=== PATIENT | female | born 1995 | race American Indian/Alaskan Native ===

== ENCOUNTER 2017-06-29 12:31 | Emergency (ER) | payer OTHER ==
[2017-06-29 12:49] VITALS: BP 114/63
== END 2017-06-29 13:45 | disposition left against medical advice (07) ==
LOC: ED 12:31
DX: T19.2XXA Foreign body in vulva and vagina, initial encounter (principal); Z53.21 Procedure and treatment not carried out due to patient leaving prior to being seen by health care provider; X58.XXXA Exposure to other specified factors, initial encounter; Y93.89 Activity, other specified; Y99.8 Other external cause status; Y92.89 Other specified places as the place of occurrence of the external cause

== ENCOUNTER 2017-07-03 08:11 | Emergency (ER) | payer OTHER ==
[2017-07-03 08:29] VITALS: BP 101/77
--- NOTE | 2017-07-03 09:56 | Emergency Department Report ---
ED Female HPI - General Chief complaint: Urogenital-Female Stated complaint: FOREIGN BODY VAGINAL AREA Time Seen by Provider: 07/03/17 09:38 Source: patient Mode of arrival: Ambulatory Limitations: No Limitations - History of Present Illness Initial comments: Patient is a 22-year-old female who presents to ED stating that she is unable to get the tampon out of her. Patient states she put a tampon in 4 days ago and has been unable to get it out. Patient states she does notice herself order when she urinates otherwise no other symptoms. - Related Data Previous Rx's Medication Instructions Recorded Last Taken Type metroNIDAZOLE [Flagyl TAB] 500 mg PO Q12HR #14 tab 07/03/17 Unknown Rx Allergies Allergy/AdvReac Type Severity Reaction Status Date / Time No Known Allergies Allergy Unverified 06/29/17 12:49 ED Review of Systems ROS: Stated complaint: FOREIGN BODY VAGINAL AREA Other details as noted in HPI Constitutional: denies: chills, fever Eyes: denies: eye pain, eye discharge, vision change ENT: denies: ear pain, throat pain Respiratory: denies: cough, shortness of breath, wheezing Cardiovascular: denies: chest pain, palpitations Endocrine: no symptoms reported Gastrointestinal: denies: abdominal pain, nausea, diarrhea Genitourinary: denies: urgency, dysuria, discharge Musculoskeletal: denies: back pain, joint swelling, arthralgia Skin: denies: rash, lesions Neurological: denies: headache, weakness, paresthesias Psychiatric: denies: anxiety, depression Hematological/Lymphatic: denies: easy bleeding, easy bruising ED Past Medical Hx - Past Medical History Previous Medical History?: No - Surgical History Past Surgical History?: No - Social History Smoking Status: Current Every Day Smoker Substance Use Type: Alcohol - Medications Home Medications: Home Medications Medication Instructions Recorded Confirmed Last Taken Type metroNIDAZOLE [Flagyl TAB] 500 mg PO Q12HR #14 tab 07/03/17 Unknown Rx ED Physical Exam - General Limitations: No Limitations General appearance: alert, in no apparent distress - Head Head exam: Present: atraumatic, normocephalic - Eye Eye exam: Present: normal appearance - ENT ENT exam: Present: mucous membranes moist - Neck Neck exam: Present: normal inspection - Respiratory Respiratory exam: Present: normal lung sounds bilaterally. Absent: respiratory distress - Cardiovascular Cardiovascular Exam: Present: regular rate, normal rhythm. Absent: systolic murmur, diastolic murmur, rubs, gallop - GI/Abdominal GI/Abdominal exam: Present: soft, normal bowel sounds - External exam: Present: normal external exam. Absent: erythema, swelling, lesions Speculum exam: Present: foreign body (Tampon), other - Extremities Exam Extremities exam: Present: normal inspection - Back Exam Back exam: Present: normal inspection - Neurological Exam Neurological exam: Present: alert, oriented X3 - Psychiatric Psychiatric exam: Present: normal affect, normal mood - Skin Skin exam: Present: warm, dry, intact, normal color. Absent: rash ED Course Vital Signs 07/03/17 08:27 Temperature 98.2 F Pulse Rate 73 Respiratory 20 Rate Blood Pressure 101/77 O2 Sat by Pulse 100 Oximetry ED Medical Decision Making - Medical Decision Making 22-year-old female presents with a tampon in vaginal wall ED course: Tampon was removed successfully. Tampon was soaked the brownish blood discharge. No cervical discharge or signs ofas infection I discussed the patient I'll give h Flagyl twice a day for the next 14 days for prophylaxis of BV I discussed the patient to follow up with her AMBULANCE OFFICER as referred. Critical care attestation.: If time is entered above; I have spent that time in minutes in the direct care of this critically ill patient, excluding procedure time. ED Disposition Clinical Impression: Foreign body in vagina Qualifiers: Encounter type: initial encounter Qualified Code(s): T19.2XXA - Foreign body in vulva and vagina, initial encounter Disposition: TO HOME OR SELFCARE Is pt being admited?: No Does the pt Need Aspirin: No Condition: Stable Instructions: Vaginal Foreign Body (ED) Additional Instructions: Make sure to follow up with the primary care physician as discussed. Take all your medications as you've been prescribed. If you have any worsening symptoms or develop new symptoms please return to ED immediately. Prescriptions: metroNIDAZOLE [Flagyl TAB] 500 mg PO Q12HR #14 tab Referrals: PRIMARY MD ROGERS [Primary Care Provider] - 3-5 Days DIANDRA BHATTI MD [Referring] - 3-5 Days [facility] [Outside] - 3-5 Days [facility] [Outside] - 3-5 Days Forms: Work/School Release Form(ED) Time of Disposition: 11:15
== END 2017-07-03 11:23 | disposition home or self-care (01) ==
LOC: ED 08:11
DX: T19.2XXA Foreign body in vulva and vagina, initial encounter (principal); F17.200 Nicotine dependence, unspecified, uncomplicated; X58.XXXA Exposure to other specified factors, initial encounter; Y93.89 Activity, other specified; Y92.89 Other specified places as the place of occurrence of the external cause; Y99.8 Other external cause status
CPT/HCPCS: 99282

== ENCOUNTER 2017-07-23 08:56 | Emergency (ER) | payer MEDICAID, OTHER ==
[2017-07-23 09:16] VITALS: BP 115/71
[2017-07-23 09:40] LABS: Bacteria,Urine 4+ /HPF (Negative); Bilirubin,Urine NEG (Negative); Blood,Urine SM (Negative); Color,Urine Yellow (Yellow); Mucus,Urine 3+ /HPF
[2017-07-23 09:42] LABS: HCG Qualitative,Urine Negative (Negative)
--- NOTE | 2017-07-23 10:25 | Emergency Department Report ---
Minor Respiratory - HPI Chief Complaint: Upper Respiratory Infection Stated Complaint: FLU SX Time Seen by Provider: 07/23/17 09:24 Duration: 3 Days Pain Location: Throat, Nose (congestion) Severity: moderate Minor Respiratory: Yes Rhinorrhea, Yes Sore Throat, Yes Able to Tolerate Fluids , Yes Cough, Yes Sick Contacts (children), Yes Fever, No Ear Pain, No Hemoptysis , No Chest Pain, No Shortness of Breath Other History: This is a 22 y.o. female that presents with cough, chills, sore throat, congestion, and body aches for 3 days. Patient reports children have the same symptoms and they where sick prior to her. She is worried she may have the flu. States cough is worse at night and she is aching all over. She is taking nyquil, benadryl, and oz-selzer for symptoms which where helping originally. She is also worried she may be . LMP 06/23/2017, A2. Reports menses is never late unless she is . She looked on application yesterday and was supposed to start last night and it never came on. Denies frequency, urgency, vomiting, abdominal pain, headache, and chest pain. ED Review of Systems ROS: Stated complaint: FLU SX Other details as noted in HPI Constitutional: chills, fever, malaise. denies: weakness Respiratory: denies: cough, shortness of breath, wheezing Cardiovascular: denies: chest pain, palpitations Gastrointestinal: nausea. denies: abdominal pain, vomiting, diarrhea, constipation Genitourinary: denies: urgency, dysuria, frequency, discharge Musculoskeletal: myalgia (generalized body aches). denies: back pain, joint swelling, arthralgia Neurological: denies: headache, weakness, numbness, paresthesias Psychiatric: denies: anxiety, depression ED Past Medical Hx - Past Medical History Previous Medical History?: No - Surgical History Past Surgical History?: Yes Additional Surgical History: D&C after a miscarriage - Social History Smoking Status: Current Every Day Smoker Substance Use Type: Alcohol - Medications Home Medications: Home Medications Medication Instructions Recorded Confirmed Last Taken Type metroNIDAZOLE [Flagyl TAB] 500 mg PO Q12HR #14 tab 07/03/17 Unknown Rx Benzonatate 200 mg PO TID PRN #30 capsule 07/23/17 Unknown Rx Cetirizine HCl [Zyrtec] 10 mg PO DAILY #30 tablet 07/23/17 Unknown Rx Fluticasone [Flonase] 1 spray NS QDAY #1 bottle 07/23/17 Unknown Rx Sulfamethoxazole/Trimethoprim 1 each PO BID 3 Days #6 tablet 07/23/17 Unknown Rx [Bactrim DS TAB] Minor Respiratory Exam - Exam General: Vital signs noted. No distress. Alert and acting appropriately. HEENT: Yes Pharyngeal Erythema, Yes Moist Mucous Membranes, Yes Rhinorrhea ( turbinates congested, clear discharge), No Pharyngeal Exudates, No Conjuctival Injection, No Frontal Tenderness, No Maxillary Tenderness Ear: Neither TM Bulge, Neither TM Erythema, Neither EAC Pain, Neither EAC Discharge Neck: Yes Supple, No Adenopathy Lungs: Yes Good Air Exchange, Yes Cough, No Wheezes, No Ronchi, No Stridor, No Labored Respirations, No Retractions, No Use of Accessory Muscles, No Other Abnormal Lung Sounds Heart: Yes Regular, No Murmur Abdomen: Yes Normal Bowel Sounds, No Tenderness, No Peritoneal Signs Skin: No Rash, No Edema Neurologic: Alert and oriented, no deficits. Musculoskeletal: Unremarkable. ED Course Vital Signs 07/23/17 09:13 Temperature 98.3 F Pulse Rate 82 Respiratory 18 Rate Blood Pressure 115/71 O2 Sat by Pulse 98 Oximetry ED Medical Decision Making - Medical Decision Making 22 y.o. female that presents with URI symptoms. She is also concerned of possibly being . LMP 06/23/2017, A2. Patient examined by me and stable. No distress noted. Vitals stable. Obtained UA & HCG. Urinalysis, acute cystitis and urine HCG negative. Start bactrim DS, flonase, cetrizine, and benzonatate. Discharged home in stable condition. Encouraged to do supportive care for URI. Follow up with PCP in 2-3 days. Critical care attestation.: If time is entered above; I have spent that time in minutes in the direct care of this critically ill patient, excluding procedure time. ED Disposition Clinical Impression: Acute cystitis Qualifiers: Hematuria presence: with hematuria Qualified Code(s): N30.01 - Acute cystitis with hematuria URI (upper respiratory infection) Qualifiers: URI type: acute nasopharyngitis (common cold) Qualified Code(s): J00 - Acute nasopharyngitis [common cold] Disposition: DC-01 TO HOME OR SELFCARE Is pt being admited?: No Does the pt Need Aspirin: No Condition: Stable Instructions: Upper Respiratory Infection (ED), Cold Symptoms (ED), Urinary Tract Infection in Women (ED) Additional Instructions: Increase fluid intake and rest. Wash hands frequently. Continue taking tylenol or ibuprofen to control fever. Return to ER if fever, SOB, or difficulty breathing after 48 hours of supportive care. F/U with Primary Care Provider in 2-3 days. Prescriptions: Benzonatate 200 mg PO TID PRN #30 capsule PRN Reason: Cough Cetirizine HCl [Zyrtec] 10 mg PO DAILY #30 tablet Fluticasone [Flonase] 1 spray NS QDAY #1 bottle Sulfamethoxazole/Trimethoprim [Bactrim DS TAB] 1 each PO BID 3 Days #6 tablet Referrals: [facility] [Outside] - 3-5 Days [facility] [Outside] - 3-5 Days [facility] [Outside] - 3-5 Days Forms: Work/School Release Form(ED) Time of Disposition: 10:37 Print Language: VENEZUELAN
== END 2017-07-23 10:42 | disposition home or self-care (01) ==
LOC: ED 08:56
DX: N30.90 Cystitis, unspecified without hematuria (principal); J06.9 Acute upper respiratory infection, unspecified; F17.200 Nicotine dependence, unspecified, uncomplicated
CPT/HCPCS: 81001; 81025; 99283

== ENCOUNTER 2018-09-30 09:56 | Emergency (ER) | payer MEDICAID ==
--- NOTE | 2018-09-30 10:16 | Emergency Department Report ---
ED Dysuria HPI - HPI Chief Complaint: Vaginal Bleeding Stated Complaint: IRREG VAG BLEEDING Time Seen by Provider: 09/30/18 10:15 Duration: 2 Days Location of Discomfort: Suprapubic Severity: Mild Symptoms: Dysuria: No, Frequency: No, Suprapubic Pain: No, Flank Pain: No, Fever: No, Hematuria: No, Abdominal Pain: No, Previous UTI's: No Other History: Patient is a 23-year-old female who comes to the ER today with irregular periods. Last period was August 12. Patient concerned that she is . Denies abdominal pain. ED Review of Systems ROS: Stated complaint: VAGINAL BLEEDING,LOW BACK PAIN Other details as noted in HPI Comment: All other systems reviewed and negative ED Past Medical Hx - Past Medical History Previous Medical History?: No - Surgical History Past Surgical History?: Yes Additional Surgical History: D&C after a miscarriage - Social History Smoking Status: Current Every Day Smoker Substance Use Type: Alcohol - Medications Home Medications: Home Medications Medication Instructions Recorded Confirmed Last Taken Type metroNIDAZOLE [Flagyl TAB] 500 mg PO Q12HR #14 tab 07/03/17 Unknown Rx Benzonatate 200 mg PO TID PRN #30 capsule 07/23/17 Unknown Rx Cetirizine HCl [Zyrtec 10mg tab] 10 mg PO DAILY #30 tablet 07/23/17 Unknown Rx Fluticasone [Flonase] 1 spray NS QDAY #1 bottle 07/23/17 Unknown Rx Sulfamethoxazole/Trimethoprim 1 each PO BID 3 Days #6 tablet 07/23/17 Unknown Rx [Bactrim DS TAB] Dysuria Exam - Exam General: Vital signs noted. No distress. Alert and acting appropriately. Exam: Yes Moist Mucous Membranes, No CVA Tenderness, No Abdominal Tenderness, No Rigidity or Guarding Exam: WDWN patient in NAD. VS per RN flow sheet. Alert and oriented to person, place and time. S1-S2. No S3 or S4. No systolic or diastolic murmur. No JVD. No pitting edema. Lungs clear to auscultation bilaterally anteriorly and posteriorly. Abdomen soft nontender bowel sounds X4. Mood and affect appropriate. ED Medical Decision Making - Medical Decision Making PREG NEG Lab Results 09/30/18 Range/Units 10:37 Urine Color Straw (Yellow) Urine Turbidity Clear (Clear) Urine pH 7.0 (5.0-7.0) Ur Specific [place] 1.011 (1.003-1.030) Urine Protein <15 mg/dl (Negative) mg/dL Urine Glucose (UA) Neg (Negative) mg/dL Urine Ketones Neg (Negative) mg/dL Urine Blood Mod (Negative) Urine Nitrite Neg (Negative) Urine Bilirubin Neg (Negative) Urine Urobilinogen < 2.0 (<2.0) mg/dL Ur Leukocyte Esterase Neg (Negative) Urine WBC (Auto) 2.0 (0.0-6.0) /HPF Urine RBC (Auto) 4.0 (0.0-6.0) /HPF U Epithel Cells (Auto) < 1.0 (0-13.0) /HPF Urine Mucus Few /HPF Urine HCG, Qual Negative (Negative) PT VSS. NO FEVER. NO ABD PAIN. NO CVA TENDERNESS CONCERNED SHE IS DC HOME WITH OBGYN FOLLOW UP Critical care attestation.: If time is entered above; I have spent that time in minutes in the direct care of this critically ill patient, excluding procedure time. ED Disposition Clinical Impression: Irregular menses Disposition: DC-01 TO HOME OR SELFCARE Is pt being admited?: No Does the pt Need Aspirin: No Condition: Stable Instructions: Menstruation (ED) Additional Instructions: DIET TOLERATED MEDS ORDERED TODAY IN ER FOLLOW INSTRUCTIONS ON THE BOTTLE FOLLOW UP PCP WITHIN 48 HOURS TO ENSURE YOU ARE GETTING BETTER ACTIVITY TOLERATED MOTRIN OR TYLENOL FOR PAIN OR FEVER RETURN TO THE ER FOR WORSENING SYMPTOMS NOT RELIEVED BY YOUR MEDICATIONS. NEG PREG Referrals: LENNIE CASANOVA MD [Staff Physician] - 3-5 Days Time of Disposition: 11:13
[2018-09-30 10:58] LABS: Bilirubin,Urine NEG (Negative); Blood,Urine MOD (Negative); Color,Urine Straw (Yellow); Mucus,Urine FEW /HPF; Protein,Urine <15 mg/dL mg/dL (Negative); Urobilinogen,Urine < 2.0 mg/dL (<2.0)
[2018-09-30 11:02] LABS: HCG Qualitative,Urine Negative (Negative)
== END 2018-09-30 11:30 | disposition home or self-care (01) ==
LOC: ED 09:56
DX: N92.6 Irregular menstruation, unspecified (principal); F17.200 Nicotine dependence, unspecified, uncomplicated; Z98.890 Other specified postprocedural states
CPT/HCPCS: 81001; 81025

== ENCOUNTER 2018-12-23 18:49 | Emergency (ER) | payer MEDICAID, OTHER ==
--- NOTE | 2018-12-23 18:56 | Emergency Department Report ---
Blank Doc - Documentation Documentation: 23-year-old female that presents with pelvic cramping and vaginal discharge. Stated is but denies knowning how far along. Denies any vaginal bleeding. This initial assessment/diagnostic orders/clinical plan/treatment(s) is/are subject to change based on patient's health status, clinical progression and re- assessment by fellow clinical providers in the ED. Further treatment and workup at subsequent clinical providers discretion. Patient/guardians urged not to el ope from the ED as their condition may be serious if not clinically assessed and managed. Initial orders include: 1- Patient sent to [facility] for further evaluation and treatment 2- labs 3- UA 4- US OB
[2018-12-23 19:32] LABS: Basophils % (Auto) 0.6 % (0.0-1.8); Eosinophils # (Auto) 0.1 K/mm3 (0.0-0.4); Eosinophils % (Auto) 1.1 % (0.0-4.3); Hematocrit 38.2 % (30.3-42.9); Hemoglobin 12.6 gm/dl (10.1-14.3); Lymphocytes # (Auto) 3.1 K/mm3 (1.2-5.4); Lymphocytes % (Auto) 43.5 % (13.4-35.0); Mean Corpuscular HGB Conc 33 % (30-34); Mean Corpuscular Volume 93 fl (79-97); Monocytes # (Auto) 0.6 K/mm3 (0.0-0.8); Monocytes % (Auto) 8.6 % (0.0-7.3); Platelet Count 310 K/mm3 (140-440); Red Blood Count 4.12 M/mm3 (3.65-5.03); Red Cell Distribution Width 13.3 % (13.2-15.2)
[2018-12-23 21:38] LABS: Amorphous Crystals,Urine Few; Bilirubin,Urine NEG (Negative); Blood,Urine NEG (Negative); Color,Urine Yellow (Yellow); Mucus,Urine FEW /HPF; Protein,Urine <15 mg/dL mg/dL (Negative); Urobilinogen,Urine < 2.0 mg/dL (<2.0)
--- NOTE | 2018-12-23 22:04 | Ultrasound Report ---
CLINICAL DATA: pelvic pain TECHNICAL DATA: Real-time imaging of the pelvic structures were performed along with Doppler imaging of the adnexa FINDINGS: The uterus is of normal size and echogenicity. There are no uterine masses. Endometrial thickness me asures 1.0 cm The right and left ovaries are of symmetric size and echogenicity. There are no ovarian or adnexal ma sses. Doppler imaging demonstrates normal vascular flow to both ovaries. There is no significant quantity of free fluid dependently within the pelvis. IMPRESSION: Unremarkable routine ultrasound. WOMEN OF REPRODUCTIVE AGE: 1. Cysts <=3 cm: Normal physiologic findings; at the discretion of the interpreting physician whether or not to describe them in the imaging report; do not need follow-up. 2. Cysts >3 and <=5 cm: Should be described in the imaging report with a statement that they are almo st certainly benign; do not need follow-up. 3. Cysts >5 and <=7 cm: Should be described in the imaging report with a statement that they are almo st certainly benign; yearly follow-up with US recommended. 4. Cysts >7 cm: Since these may be difficult to assess completely with US, further imaging with magne tic resonance (MR) or surgical evaluation should be considered. POSTMENOPAUSAL WOMEN: 1. Cysts <=1 cm: Are clinically inconsequential; at the discretion of the interpreting physician whet her or not to describe them in the imaging report; do not need follow-up. 2. Cysts >1 and <=7 cm: Should be described in the imaging report with statement that they are almost certainly benign; yearly follow-up, at least initially, with US recommended. Some practices may opt to increase the lower size threshold for follow-up from 1 cm to as high as 3 cm. One may opt to gladis nue follow-up annually or to decrease the frequency of follow-up once stability or decrease in size h as been confirmed. Cysts in the larger end of this range should still generally be followed on a regu lar basis. 3. Cysts >7 cm: Since these may be difficult to assess completely with US, further imaging with MR or surgical evaluation should be considered. Signer Name: Rodriguez Kaba MD Signed: 12/23/2018 10:00 PM Workstation Name: [id number]
--- NOTE | 2018-12-23 23:38 | Emergency Department Report ---
ED General Adult HPI - General Chief complaint: Vaginal Bleeding Stated complaint: /CRAMPING Time Seen by Provider: 12/23/18 18:55 Source: patient Mode of arrival: Ambulatory Limitations: No Limitations - History of Present Illness Initial comments: Patient is a A2 23-year-old -[place] female who presents to the ED with acute onset of persistent diffuse lower abdominal pain with vaginal spotting for the last 2 days. Patient states that she had a home test which was positive. Patient denies nausea, vomiting, dizziness, fever, chills, dysuria, urinary frequency and urgency, cough, chest pain, shortness of breath, diarrhea or vaginal discharge. MD Complaint: abdominal pain -: Sudden, days(s) (2) Location: abdomen Severity scale (0 -10): 2 Quality: aching Consistency: intermittent Improves with: none Worsens with: none Associated Symptoms: denies other symptoms, malaise. denies: confusion, chest pain, cough, diaphoresis, fever/chills, headaches, loss of appetite, nausea/vomiting, rash, seizure, shortness of breath, syncope, weakness Treatments Prior to Arrival: none - Related Data Previous Rx's Medication Instructions Recorded Last Taken Type metroNIDAZOLE [Flagyl TAB] 500 mg PO Q12HR #14 tab 07/03/17 Unknown Rx Benzonatate 200 mg PO TID PRN #30 capsule 07/23/17 Unknown Rx Cetirizine HCl [Zyrtec 10mg tab] 10 mg PO DAILY #30 tablet 07/23/17 Unknown Rx Fluticasone [Flonase] 1 spray NS QDAY #1 bottle 07/23/17 Unknown Rx Sulfamethoxazole/Trimethoprim 1 each PO BID 3 Days #6 tablet 07/23/17 Unknown Rx [Bactrim DS TAB] Allergies Allergy/AdvReac Type Severity Reaction Status Date / Time No Known Allergies Allergy Unverified 06/29/17 12:49 ED Review of Systems ROS: Stated complaint: /CRAMPING Other details as noted in HPI Constitutional: denies: chills, fever Eyes: denies: eye pain, eye discharge, vision change ENT: denies: ear pain, throat pain Respiratory: denies: cough, shortness of breath, wheezing Cardiovascular: denies: chest pain, palpitations Endocrine: no symptoms reported Gastrointestinal: abdominal pain. denies: nausea, vomiting, diarrhea Genitourinary: abnormal menses (vaginal bleeding). denies: urgency, dysuria, discharge Musculoskeletal: denies: back pain, joint swelling, arthralgia Skin: denies: rash, lesions Neurological: denies: headache, weakness, paresthesias Psychiatric: denies: anxiety, depression Hematological/Lymphatic: denies: easy bleeding, easy bruising ED Past Medical Hx - Past Medical History Previous Medical History?: No - Surgical History Additional Surgical History: D&C after a miscarriage - Social History Smoking Status: Never Smoker Substance Use Type: None - Medications Home Medications: Home Medications Medication Instructions Recorded Confirmed Last Taken Type metroNIDAZOLE [Flagyl TAB] 500 mg PO Q12HR #14 tab 07/03/17 Unknown Rx Benzonatate 200 mg PO TID PRN #30 capsule 07/23/17 Unknown Rx Cetirizine HCl [Zyrtec 10mg tab] 10 mg PO DAILY #30 tablet 07/23/17 Unknown Rx Fluticasone [Flonase] 1 spray NS QDAY #1 bottle 07/23/17 Unknown Rx Sulfamethoxazole/Trimethoprim 1 each PO BID 3 Days #6 tablet 07/23/17 Unknown Rx [Bactrim DS TAB] ED Physical Exam - General Limitations: No Limitations General appearance: alert, in no apparent distress - Head Head exam: Present: atraumatic, normocephalic, normal inspection - Eye Eye exam: Present: normal appearance, PERRL, EOMI Pupils: Present: normal accommodation - ENT ENT exam: Present: normal exam, normal orophraynx, mucous membranes moist, TM's normal bilaterally, normal external ear exam - Neck Neck exam: Present: normal inspection, full ROM - Respiratory Respiratory exam: Present: normal lung sounds bilaterally. Absent: respiratory distress, wheezes, rales, rhonchi, stridor, chest wall tenderness, accessory m uscle use, decreased breath sounds, prolonged expiratory - Cardiovascular Cardiovascular Exam: Present: regular rate, normal rhythm, normal heart sounds. Absent: systolic murmur, diastolic murmur, rubs, gallop - GI/Abdominal GI/Abdominal exam: Present: soft, normal bowel sounds. Absent: tenderness, guarding, rebound, hyperactive bowel sounds, hypoactive bowel sounds, organomegaly, mass - Extremities Exam Extremities exam: Present: normal inspection, full ROM, normal capillary refill - Back Exam Back exam: Present: normal inspection, full ROM. Absent: tenderness, CVA tenderness (R), CVA tenderness (L), muscle spasm, paraspinal tenderness, vertebral tenderness - Neurological Exam Neurological exam: Present: alert, oriented X3, CN II-XII intact, normal gait, reflexes normal - Psychiatric Psychiatric exam: Present: normal affect, normal mood - Skin Skin exam: Present: warm, dry, intact, normal color. Absent: rash ED Course Vital Signs 12/23/18 18:55 Temperature 98.4 F Pulse Rate 90 Respiratory 16 Rate Blood Pressure 114/65 [Left] O2 Sat by Pulse 99 Oximetry - Reevaluation(s) Reevaluation #1: 12/23/18 23:38 This is a 23-year-old female who presented to the ED with diffuse lower abdominal pain and vaginal spotting for 2 days. In the ED, patient is alert and oriented 3 and is not in distress. Lab test results were reviewed and nonactionable including hCG Quant of 13.77. Urinalysis is unremarkable. Transvaginal ultrasound is unremarkable. On reevaluation, patient resting comfortably and sleeping with no pain. Patient was discharged home and advised to follow-up with her [facility] [employer] [employer] physician as scheduled the next day. Patient was also advised to return to the ED in 48 hours for recheck of her hCG Quant studies. Patient was however advised to return to the ED immediately if her symptoms get worse. 12/23/18 23:39 12/23/18 23:40 ED Medical Decision Making - Lab Data Result diagrams: 12/23/18 19:14 - Radiology Data Radiology results: report reviewed, image reviewed Findings [address] [address] Ultrasound Report Signed Patient: AMA RINCON MR#: [id number] : 1995 Acct:[id number] Age/Sex: 23 / F ADM Date: 12/23/18 Loc: ED Attending Dr: Ordering Physician: CASSIE MACIAS NP Date of Service: 12/23/18 Procedure(s): US OB transvaginal Accession Number(s): [id number] cc: CASSIE MACIAS NP CLINICAL DATA: pelvic pain TECHNICAL DATA: Real-time imaging of the pelvic structures were performed along with Doppler imaging of the adnexa FINDINGS: The uterus is of normal size and echogenicity. There are no uterine masses. Endometrial thickness measures 1.0 cm The right and left ovaries are of symmetric size and echogenicity. There are no ovarian or adnexal masses. Doppler imaging demonstrates normal vascular flow to both ovaries. There is no significant quantity of free fluid dependently within the pelvis. IMPRESSION: Unremarkable routine ultrasound. WOMEN OF REPRODUCTIVE AGE: 1. Cysts <=3 cm: Normal physiologic findings; at the discretion of the interpreting physician whether or not to describe them in the imaging report; do not need follow-up. 2. Cysts >3 and <=5 cm: Should be described in the imaging report with a statement that they are almost certainly benign; do not need follow-up. 3. Cysts >5 and <=7 cm: Should be described in the imaging report with a statement that they are almost certainly benign; yearly follow-up with US recommended. 4. Cysts >7 cm: Since these may be difficult to assess completely with US, further imaging with magnetic resonance (MR) or surgical evaluation should be considered. POSTMENOPAUSAL WOMEN: 1. Cysts <=1 cm: Are clinically inconsequential; at the discretion of the interpreting physician whether or not to describe them in the imaging report; do not need follow-up. 2. Cysts >1 and <=7 cm: Should be described in the imaging report with statement that they are almost certainly benign; yearly follow-up, at least initially, with US recommended. Some practices may opt to increase the lower size threshold for follow-up from 1 cm to as high as 3 cm. One may opt to continue follow-up annually or to decrease the frequency of follow-up once stability or decrease in size has been confirmed. Cysts in the larger end of this range should still generally be followed on a regular basis. 3. Cysts >7 cm: Since these may be difficult to assess completely with US, further imaging with MR or surgical evaluation should be considered. Signer Name: Rodriguez Kaba MD Signed: 12/23/2018 10:00 PM Workstation Name: [id number] Transcribed By: ELLIS Dictated By: Rodriguez Kaba MD Electronically Authenticated By: Rodriguez Kaba MD Signed Date/Time: 12/23/18 2200 - Medical Decision Making This is a 23-year-old female who presented to the ED with diffuse lower abdominal pain and vaginal spotting for 2 days. In the ED, patient is alert and oriented 3 and is not in distress. Lab test results were reviewed and nonactionable including hCG Quant of 13.77. Urinalysis is unremarkable. Transvaginal ultrasound is unremarkable. On reevaluation, patient resting comfortably and sleeping with no pain. Patient was discharged home and advised to follow-up with her [employer] physician as scheduled the next day. Patient was also advised to return to the ED in 48 hours for recheck of her hCG Quant studies. Patient was however advised to return to the ED immediately if her symptoms get worse. - Differential Diagnosis ; Miscarriage; Ovarian cyst; PID; Acute UTI Critical care attestation.: If time is entered above; I have spent that time in minutes in the direct care of this critically ill patient, excluding procedure time. ED Disposition Clinical Impression: Vaginal bleeding Abdominal pain Qualifiers: Abdominal location: lower abdomen, unspecified Qualified Code(s): R10.30 - Lower abdominal pain, unspecified Disposition: DC-01 TO HOME OR SELFCARE Is pt being admited?: No Does the pt Need Aspirin: No Condition: Stable Instructions: Abdominal Pain in (ED) Additional Instructions: Follow-up with your [employer] physician as scheduled. Return to the ED immediately if symptoms get worse. Referrals: ILYA DOTSON MD [Primary Care Provider] - 3-5 Days Time of Disposition: 23:26 Print Language: [place]
[2018-12-23 23:44] VITALS: BP 111/82
== END 2018-12-23 23:44 | disposition home or self-care (01) ==
LOC: ED 18:49
DX: O20.9 Hemorrhage in early pregnancy, unspecified (principal); Z3A.00 Weeks of gestation of pregnancy not specified; Z79.899 Other long term (current) drug therapy
CPT/HCPCS: 36415; 76801; 76817; 81001; 84702; 85025; 86900; 86901; 99284

== ENCOUNTER 2018-12-24 10:28 | Emergency (ER) | payer OTHER ==
--- NOTE | 2018-12-24 12:15 | Emergency Department Report ---
ED HPI - General Chief complaint: Vaginal Bleeding Stated complaint: /CRAMPS/BLEEDING Time Seen by Provider: 12/24/18 11:43 Source: patient Mode of arrival: Ambulatory Limitations: No Limitations - History of Present Illness Initial comments: Patient is a 23-year-old female presents emergency room with complaints of lower abdominal cramping and vaginal spotting that began yesterday. She took at home test a few days ago and it was positive. States her last menstrual cycle was November 20. She was evaluated in the emergency department at 11 PM last night. Her hCG Quant at that time was 13. CBC and UA were normal. She had an ultrasound performed which showed no acute abnormality, no IUP, no ectopic . With her low Quant level and ultrasound findings could be due to very early or miscarriage. States she has an appointment today at my [facility] at 1 PM. Patient states that she was not sure if her test last night was positive or not. - Related Data Previous Rx's Medication Instructions Recorded Last Taken Type metroNIDAZOLE [Flagyl TAB] 500 mg PO Q12HR #14 tab 07/03/17 Unknown Rx Benzonatate 200 mg PO TID PRN #30 capsule 07/23/17 Unknown Rx Cetirizine HCl [Zyrtec 10mg tab] 10 mg PO DAILY #30 tablet 07/23/17 Unknown Rx Fluticasone [Flonase] 1 spray NS QDAY #1 bottle 07/23/17 Unknown Rx Sulfamethoxazole/Trimethoprim 1 each PO BID 3 Days #6 tablet 07/23/17 Unknown Rx [Bactrim DS TAB] Allergies Allergy/AdvReac Type Severity Reaction Status Date / Time No Known Allergies Allergy Unverified 06/29/17 12:49 ED Review of Systems ROS: Stated complaint: /CRAMPS/BLEEDING Other details as noted in HPI Comment: All other systems reviewed and negative ED Past Medical Hx - Past Medical History Previous Medical History?: Yes Additional medical history: ECTOPIC - Surgical History Past Surgical History?: No Additional Surgical History: D&C after a miscarriage - Social History Smoking Status: Never Smoker Substance Use Type: None - Medications Home Medications: Home Medications Medication Instructions Recorded Confirmed Last Taken Type metroNIDAZOLE [Flagyl TAB] 500 mg PO Q12HR #14 tab 07/03/17 Unknown Rx Benzonatate 200 mg PO TID PRN #30 capsule 07/23/17 Unknown Rx Cetirizine HCl [Zyrtec 10mg tab] 10 mg PO DAILY #30 tablet 07/23/17 Unknown Rx Fluticasone [Flonase] 1 spray NS QDAY #1 bottle 07/23/17 Unknown Rx Sulfamethoxazole/Trimethoprim 1 each PO BID 3 Days #6 tablet 07/23/17 Unknown Rx [Bactrim DS TAB] ED Physical Exam - General Limitations: No Limitations General appearance: alert, in no apparent distress - Head Head exam: Present: atraumatic, normocephalic - Eye Eye exam: Present: normal appearance - ENT ENT exam: Present: mucous membranes moist - Respiratory Respiratory exam: Present: normal lung sounds bilaterally. Absent: respiratory distress, wheezes, rales, rhonchi, stridor, chest wall tenderness, accessory muscle use, decreased breath sounds, prolonged expiratory - Cardiovascular Cardiovascular Exam: Present: regular rate, normal rhythm, normal heart sounds. Absent: systolic murmur, diastolic murmur, rubs, gallop - GI/Abdominal GI/Abdominal exam: Present: soft, normal bowel sounds. Absent: distended, tenderness, guarding, rebound, rigid - Back Exam Back exam: Absent: CVA tenderness (R), CVA tenderness (L) - Neurological Exam Neurological exam: Present: alert, oriented X3 - Psychiatric Psychiatric exam: Present: normal affect, normal mood - Skin Skin exam: Present: warm, dry, intact ED Course Vital Signs 12/24/18 12/24/18 10:52 12:24 Temperature 98.0 F Pulse Rate 87 81 Respiratory 18 16 Rate Blood Pressure 115/70 Blood Pressure 118/74 [Right] O2 Sat by Pulse 100 100 Oximetry ED Medical Decision Making - Medical Decision Making Patient is a 23-year-old female presents emergency room with complaints of lower abdominal cramping and vaginal spotting that began yesterday. She took at home test a few days ago and it was positive. States her last menstrual cycle was November 20. She was evaluated in the emergency department at 11 PM last night. Her hCG Quant at that time was 13. CBC and UA were normal. pt was Rh positive. She had an ultrasound performed which showed no acute abnormality, no IUP, no ectopic . With her low Quant level and ultrasound findings could be due to very early or miscarriage. States she has an appointment today at my [facility] at 1 PM. Patient states that she was not sure if her test last night was positive or not. advised pt to please keep your appointment with my AUDIO VISUAL DESIGN ENGINEER today at 1 PM. drink plenty of water. Last night (12/23/18) your hCG Quant was 13.77. need to have your hcg quant repeated within 48 hours which would be tomorrow (12/25/18). Return to the emergency room for any new or worsening symptoms. pt given US report. no need for further workup at this time, pt will need to have repeat quant at 48 hours from her last one to see if increasing or decreasing which would indicate early vs. miscarriage. discussed yesterdays results with pt and answered all questions. Critical care attestation.: If time is entered above; I have spent that time in minutes in the direct care of this critically ill patient, excluding procedure time. ED Disposition Clinical Impression: Suprapubic cramping, Vaginal bleeding, Threatened miscarriage Disposition: TO HOME OR SELFCARE Is pt being admited?: No Does the pt Need Aspirin: No Condition: Stable Instructions: Threatened Miscarriage (ED) Additional Instructions: Please keep your appointment with my AUDIO VISUAL DESIGN ENGINEER today at 1 PM. drink plenty of water. Last night (12/23/18) your hCG Quant was 13.77. need to have your hcg quant repeated within 48 hours which would be tomorrow (12/25/18). Return to the emergency room for any new or worsening symptoms. Referrals: [facility] [Provider Group] - 2-3 Days Time of Disposition: 12:13 Print Language: BENGALI
[2018-12-24 12:27] VITALS: BP 118/74
== END 2018-12-24 12:24 | disposition home or self-care (01) ==
LOC: ED 10:28
DX: O20.0 Threatened abortion (principal); Z3A.01 Less than 8 weeks gestation of pregnancy
CPT/HCPCS: 99282

== ENCOUNTER 2019-08-07 06:50 | Emergency (ER) | payer MEDICAID, OTHER ==
[2019-08-07 06:58] VITALS: BP 112/67
[2019-08-07] MEDS ORDERED: cephALEXin 500 MG CAP PO ONE (07:39)
[2019-08-07] MEDS ORDERED: ACETAMINOPHEN 325 MG TAB PO ONE (07:39)
[2019-08-07] MEDS ORDERED: PHENAZOPYRIDINE 100 MG TAB PO ONE (08:00)
--- NOTE | 2019-08-07 08:23 | Emergency Department Report ---
ED Female HPI - General Chief complaint: Urogenital-Female Stated complaint: PREG 12WKS/ABD PAIN/LOWER BACK PAIN Time Seen by Provider: 08/07/19 07:38 Source: patient Mode of arrival: Ambulatory Limitations: No Limitations - History of Present Illness Initial comments: 24-year-old -Togolese female that is 5 para 3 with 1 demise presents to the emergency room complaining of lower back pain x2 days. Patient states that she is approximately 12 weeks with a last menstrual period of 05/17/2019. Patient states that she was diagnosed with a UTI by her primary care provider but was not given any medications. Patient states at that time she was having no symptoms now she is having burning with urination and urgency. Patient denies any fever does admit to nausea and vomiting but denies any diarrhea. Patient is followed by [facility]. MD Complaint: dysuria, pelvic pain Onset/Timin -: days(s) Location: suprapubic Severity scale (0 -10): 4 Quality: burning Consistency: intermittent Improves with: none Worsens with: urination Are you Now?: Yes Last Menstrual Period: 05/17/19 EDC: 02/21/20 Associated Symptoms: nausea/vomiting, dysuria - Related Data Sexually active: Yes : 5 Para: 3 A: 1 Previous Rx's Medication Instructions Recorded Last Taken Type metroNIDAZOLE [Flagyl TAB] 500 mg PO Q12HR #14 tab 07/03/17 Unknown Rx Benzonatate 200 mg PO TID PRN #30 capsule 07/23/17 Unknown Rx Cetirizine HCl [Zyrtec 10mg tab] 10 mg PO DAILY #30 tablet 07/23/17 Unknown Rx Fluticasone [Flonase] 1 spray NS QDAY #1 bottle 07/23/17 Unknown Rx Sulfamethoxazole/Trimethoprim 1 each PO BID 3 Days #6 tablet 07/23/17 Unknown Rx [Bactrim DS TAB] CLOTRIMAZOLE 1% Vag Cream [Mycelex 1 applic VG QHS 7 Days #45 gram 08/07/19 Unknown Rx Vag cream] Allergies Allergy/AdvReac Type Severity Reaction Status Date / Time No Known Allergies Allergy Unverified 06/29/17 12:49 ED Review of Systems ROS: Stated complaint: PREG 12WKS/ABD PAIN/LOWER BACK PAIN Other details as noted in HPI Comment: All other systems reviewed and negative ED Past Medical Hx - Past Medical History Previous Medical History?: No Additional medical history: ECTOPIC - Surgical History Past Surgical History?: No Additional Surgical History: D&C after a miscarriage - Social History Smoking Status: Never Smoker Substance Use Type: None - Medications Home Medications: Home Medications Medication Instructions Recorded Confirmed Last Taken Type metroNIDAZOLE [Flagyl TAB] 500 mg PO Q12HR #14 tab 07/03/17 Unknown Rx Benzonatate 200 mg PO TID PRN #30 capsule 07/23/17 Unknown Rx Cetirizine HCl [Zyrtec 10mg tab] 10 mg PO DAILY #30 tablet 07/23/17 Unknown Rx Fluticasone [Flonase] 1 spray NS QDAY #1 bottle 07/23/17 Unknown Rx Sulfamethoxazole/Trimethoprim 1 each PO BID 3 Days #6 tablet 07/23/17 Unknown Rx [Bactrim DS TAB] CLOTRIMAZOLE 1% Vag Cream [Mycelex 1 applic VG QHS 7 Days #45 gram 08/07/19 Unknown Rx Vag cream] ED Physical Exam - General Limitations: No Limitations General appearance: alert, in no apparent distress - Head Head exam: Present: atraumatic, normocephalic - Eye Eye exam: Present: normal appearance - ENT ENT exam: Present: mucous membranes moist - Neck Neck exam: Present: normal inspection - Respiratory Respiratory exam: Present: normal lung sounds bilaterally. Absent: respiratory distress - Cardiovascular Cardiovascular Exam: Present: regular rate, normal rhythm. Absent: systolic murmur, diastolic murmur, rubs, gallop - GI/Abdominal GI/Abdominal exam: Present: soft, tenderness (Suprapubic), normal bowel sounds. Absent: distended - Back Exam Back exam: Present: full ROM, tenderness, CVA tenderness (R), CVA tenderness (L) - Neurological Exam Neurological exam: Present: alert, oriented X3, normal gait - Psychiatric Psychiatric exam: Present: normal affect, normal mood - Skin Skin exam: Present: warm, dry, intact, normal color. Absent: rash ED Course Vital Signs 08/07/19 08/07/19 06:53 07:51 Temperature 98.2 F Pulse Rate 90 Respiratory 18 18 Rate Blood Pressure 112/67 O2 Sat by Pulse 98 Oximetry ED Medical Decision Making - Radiology Data Radiology results: report reviewed Referring Physician:SE Haider Name:AMA YAPatient ID:[id number] of :[id number]:FemaleAccession:[id number] Date:[id number] Status:Finalized Findings [facility] [address] [place] [address] Ultrasound Report Signed Patient: AMA RINCON MR#: [id number] : 1995 Acct:[id number] Age/Sex: 24 / F ADM Date: 08/07/19 Loc: ED Attending Dr: Ordering Physician: VERO PRUITT Date of Service: 08/07/19 Procedure(s): US OB transvaginal Accession Number(s): [id number] cc: VERO PRUITT ULTRASOUND OBSTETRIC INDICATION / CLINICAL INFORMATION: pelvic pain. TECHNIQUE: Transabdominal and Transvaginal. COMPARISON: None available. FINDINGS: GESTATIONAL SAC: Well-defined oval shape and intrauterine in location. YOLK SAC: No significant abnormality. EMBRYO/FETUS: No significant abnormality. - [place]-Rump Length = 4.8 cm = 11 weeks, 4 day(s). - Heart Rate, beats per minute (if present) = 156 ADNEXA: No significant abnormality. FREE FLUID: None. ADDITIONAL FINDINGS: None. IMPRESSION: 1. Single, living intrauterine with estimated sonographic age of 11 weeks, 4 day(s). Signer Name: Rogelio Aldrich MD Signed: 08/07/2019 10:36 AM Workstation Name: [id number] Transcribed By: TL Dictated By: Rogelio Aldrich MD Electronically Authenticated By: Rogelio Aldrich MD Signed Date/Time: 08/07/19 1036 DD/ 1034 TD/TT: - Medical Decision Making 24-year-old -Togolese female that is 5 para 3 with 1 demise presents to the emergency room complaining of lower back pain x2 days. Patient states that she is approximately 12 weeks with a last menstrual period of 05/17/2019. Patient states that she was diagnosed with a UTI by her primary care provider but was not given any medications. Patient states at that time she was having no symptoms now she is having burning with urination and urgency. Patient denies any fever does admit to nausea and vomiting but denies any diarrhea. Patient is followed by [facility]. Urinalysis is within normal limits, ultrasound shows 11 weeks and 4 days with no abnormalities. Wet prep shows some mild yeast. Patient's pelvic pain is most likely due to round ligament stretching from the . We will treat vaginal yeast with clotrimazole suppositories Critical care attestation.: If time is entered above; I have spent that time in minutes in the direct care of this critically ill patient, excluding procedure time. ED Disposition Clinical Impression: Vaginal candidiasis, Round ligament pain Disposition: TO HOME OR SELFCARE Is pt being admited?: No Does the pt Need Aspirin: No Condition: Stable Instructions: Vulvovaginal Candidiasis (ED) Additional Instructions: Urinalysis negative for any infection, ultrasound shows no abnormality your 11 weeks and 4 days wet prep shows that you have moderate candidiasis which is yeast in the vaginal vault. Will treat with clotrimazole vaginal suppositories at night for 7 days. You can take Tylenol as needed for pelvic pain which is most likely from your uterus being stretched from the baby getting larger. I recommend for you to follow-up with your [facility]IC[employer]RE[employer] this week coming. Prescriptions: CLOTRIMAZOLE 1% Vag Cream [Mycelex Vag cream] 1 applic VG QHS 7 Days #45 gram Referrals: PRIMARY CARE, [Primary Care Provider] - 3-5 Days [facility] [Provider Group] - 3-5 Days
[2019-08-07 08:29] LABS: Bacteria,Urine 1+ /HPF (Negative); Bilirubin,Urine NEG (Negative); Blood,Urine NEG (Negative); Color,Urine Yellow (Yellow); Mucus,Urine FEW /HPF; Protein,Urine <15 mg/dL mg/dL (Negative); Urobilinogen,Urine < 2.0 mg/dL (<2.0)
[2019-08-07 08:40] LABS: HCG Qualitative,Urine Positive (Negative)
--- NOTE | 2019-08-07 10:40 | Ultrasound Report ---
ULTRASOUND OBSTETRIC INDICATION / CLINICAL INFORMATION: pelvic pain. TECHNIQUE: Transabdominal and Transvaginal. COMPARISON: None available. FINDINGS: GESTATIONAL SAC: Well-defined oval shape and intrauterine in location. YOLK SAC: No significant abnormality. EMBRYO/FETUS: No significant abnormality. - [place]-Rump Length = 4.8 cm = 11 weeks, 4 day(s). - Heart Rate, beats per minute (if present) = 156 ADNEXA: No significant abnormality. FREE FLUID: None. ADDITIONAL FINDINGS: None. IMPRESSION: 1. Single, living intrauterine with estimated sonographic age of 11 weeks, 4 day(s). Signer Name: Rogelio Aldrich MD Signed: 08/07/2019 10:36 AM Workstation Name: [id number]
--- NOTE | 2019-08-07 10:40 | Ultrasound Report ---
ULTRASOUND OBSTETRIC INDICATION / CLINICAL INFORMATION: pelvic pain. TECHNIQUE: Transabdominal and Transvaginal. COMPARISON: None available. FINDINGS: GESTATIONAL SAC: Well-defined oval shape and intrauterine in location. YOLK SAC: No significant abnormality. EMBRYO/FETUS: No significant abnormality. - [place]-Rump Length = 4.8 cm = 11 weeks, 4 day(s). - Heart Rate, beats per minute (if present) = 156 ADNEXA: No significant abnormality. FREE FLUID: None. ADDITIONAL FINDINGS: None. IMPRESSION: 1. Single, living intrauterine with estimated sonographic age of 11 weeks, 4 day(s). Signer Name: Rogelio Aldrich MD Signed: 08/07/2019 10:36 AM Workstation Name: [id number]
== END 2019-08-07 11:16 | disposition home or self-care (01) ==
LOC: ED 06:50
DX: O98.811 Other maternal infectious and parasitic diseases complicating pregnancy, first trimester (principal); O26.891 Other specified pregnancy related conditions, first trimester; B37.3 Candidiasis of vulva and vagina; R10.2 Pelvic and perineal pain; Z3A.11 11 weeks gestation of pregnancy; Z98.890 Other specified postprocedural states; Z79.899 Other long term (current) drug therapy
CPT/HCPCS: 76802; 76817; 81001; 81025; 87210; 87591

== ENCOUNTER 2019-11-23 17:59 | Outpatient (CLI) | payer MEDICAID ==
[2019-11-23 18:16] VITALS: BP 109/65
[2019-11-23 19:53] LABS: Basophils % (Auto) 0.4 % (0.0-1.8); Eosinophils # (Auto) 0.1 K/mm3 (0.0-0.4); Eosinophils % (Auto) 0.6 % (0.0-4.3); Hemoglobin 10.9 gm/dl (10.1-14.3); Lymphocytes # (Auto) 3.1 K/mm3 (1.2-5.4); Lymphocytes % (Auto) 28.8 % (13.4-35.0); Mean Corpuscular HGB Conc 35 % (30-34); Mean Corpuscular Volume 89 fl (79-97); Monocytes # (Auto) 0.8 K/mm3 (0.0-0.8); Monocytes % (Auto) 7.2 % (0.0-7.3); Platelet Count 289 K/mm3 (140-440); Red Blood Count 3.49 M/mm3 (3.65-5.03); Red Cell Distribution Width 13.1 % (13.2-15.2)
[2019-11-23] MEDS ORDERED: LACTATED RINGERS 1,000 ML IV ONE (20:00)
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
== END 2019-11-23 22:04 | disposition home or self-care (01) ==
LOC: TRG 17:59 → APU 18:00 → TRG 22:04
PROVIDERS: ATTEND Obstetrics & Gynecology
DX: O47.02 False labor before 37 completed weeks of gestation, second trimester (principal); Z3A.27 27 weeks gestation of pregnancy
CPT/HCPCS: 36415; 59025; 76815; 85025; 85384

== ENCOUNTER 2019-12-17 22:10 | Outpatient (CLI) | payer BC, MEDICAID ==
[2019-12-17 22:41] VITALS: BP 112/63
[2019-12-17] MEDS ORDERED: LACTATED RINGERS 1,000 ML IV ONE (23:33)
[2019-12-18] MEDS ORDERED: ACETAMINOPHEN 500 MG TAB PO ONE (00:08)
[2019-12-18 01:06] LABS: Bacteria,Urine 1+ /HPF (Negative); Bilirubin,Urine NEG (Negative); Blood,Urine NEG (Negative); Calcium Oxalate Crystals,Urine 2+; Color,Urine Yellow (Yellow); Mucus,Urine FEW /HPF; Protein,Urine <15 mg/dL mg/dL (Negative)
== END 2019-12-18 02:00 | disposition home or self-care (01) ==
LOC: TRG 22:10 → APU 22:11 → TRG 12-18 02:00
PROVIDERS: ATTEND Obstetrics & Gynecology
DX: O26.893 Other specified pregnancy related conditions, third trimester (principal); M54.5 Low back pain; R10.30 Lower abdominal pain, unspecified; M79.606 Pain in leg, unspecified; R51 Headache; O47.03 False labor before 37 completed weeks of gestation, third trimester; Z3A.30 30 weeks gestation of pregnancy
CPT/HCPCS: 59025; 81001; J7120; 96360

== ENCOUNTER 2020-02-12 14:22 | Outpatient (CLI) | payer MEDICAID ==
[2020-02-12 15:04] VITALS: BP 111/63
[2020-02-12 16:24] LABS: Hematocrit 31.7 % (30.3-42.9); Hemoglobin 10.7 gm/dl (10.1-14.3); Mean Corpuscular HGB Conc 34 % (30-34); Mean Corpuscular Volume 86 fl (79-97); Platelet Count 314 K/mm3 (140-440); Red Blood Count 3.67 M/mm3 (3.65-5.03); Red Cell Distribution Width 14.4 % (13.2-15.2)
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
== END 2020-02-12 18:45 | disposition home or self-care (01) ==
LOC: APU 14:22 → TRG 14:22
PROVIDERS: ATTEND Obstetrics & Gynecology
DX: O26.893 Other specified pregnancy related conditions, third trimester (principal); X58.XXXA Exposure to other specified factors, initial encounter; Y93.89 Activity, other specified; Y92.89 Other specified places as the place of occurrence of the external cause; Y99.8 Other external cause status; Z3A.39 39 weeks gestation of pregnancy
CPT/HCPCS: 36415; 59025; 76815; 76819; 85027; 86850; 86870; 86900; 86901

== ENCOUNTER 2021-06-20 21:08 | Emergency (ER) | payer MEDICAID ==
[2021-06-20 21:21] VITALS: BP 125/76
[2021-06-20 21:58] LABS: Bacteria,Urine 1+ /HPF (Negative); Bilirubin,Urine NEG (Negative); Blood,Urine LG (Negative); Color,Urine Straw (Yellow); Protein,Urine <15 mg/dL mg/dL (Negative); Urobilinogen,Urine < 2.0 mg/dL (<2.0)
[2021-06-20 22:09] LABS: Basophils % (Auto) 0.4 % (0.0-1.8); Eosinophils % (Auto) 0.4 % (0.0-4.3); Hematocrit 39.8 % (30.3-42.9); Hemoglobin 13.1 gm/dl (10.1-14.3); Lymphocytes # (Auto) 3.9 K/mm3 (1.2-5.4); Lymphocytes % (Auto) 37.8 % (13.4-35.0); Mean Corpuscular HGB Conc 33 % (30-34); Mean Corpuscular Volume 95 fl (79-97); Monocytes # (Auto) 0.9 K/mm3 (0.0-0.8); Monocytes % (Auto) 8.5 % (0.0-7.3); Platelet Count 383 K/mm3 (140-440); Red Cell Distribution Width 13.2 % (13.2-15.2)
[2021-06-20 22:16] LABS: Alanine Aminotransferase 7 units/L (7-56); Albumin 4.6 g/dL (3.9-5); Blood Urea Nitrogen 9 mg/dL (7-17); Hemolysis Index 0
[2021-06-20 22:35] LABS: BUN/Creatinine Ratio 13
[2021-06-21 00:41] LABS: HCG Qualitative,Urine Negative (Negative)
--- NOTE | 2021-06-21 01:03 | Emergency Department Report ---
<BEANJAI - Last Filed: 06/21/21 06:15> ED Female HPI - General Chief complaint: Abdominal Pain Stated complaint: VAGINAL/ABD PAIN/IUD Time Seen by Provider: 06/20/21 23:54 Source: patient Mode of arrival: Ambulatory Limitations: No Limitations - History of Present Illness Initial comments: 26-year-old -[place] female with past medical history of having an IUD placed in 2019 presents emerged department complaining of a 2-day history of suprapubic pelvic pain with mild bleeding off and on reporting having had a positive test on June 16, 2021. Reports no fever, chills, sweats but no hemoptysis hematemesis hematochezia, no hematuria no dysuria to her knowledge MD Complaint: vaginal bleeding, pelvic pain -: Gradual Location: suprapubic Radiation: non-radiating Severity: mild Quality: dull Consistency: constant Improves with: none Worsens with: none Associated Symptoms: vaginal bleeding. denies: vaginal discharge, abdominal pain, nausea/vomiting, loss of appetite, dysuria, hematuria, rash, seizure, shortness of breath, syncope, weakness - Related Data Previous Rx's Medication Instructions Recorded Last Taken Type metroNIDAZOLE [Flagyl TAB] 500 mg PO Q12HR #14 tab 07/03/17 Unknown Rx Benzonatate 200 mg PO TID PRN #30 capsule 07/23/17 Unknown Rx Cetirizine HCl [Zyrtec 10mg tab] 10 mg PO DAILY #30 tablet 07/23/17 Unknown Rx Fluticasone [Flonase] 1 spray NS QDAY #1 bottle 07/23/17 Unknown Rx Sulfamethoxazole/Trimethoprim 1 each PO BID 3 Days #6 tablet 07/23/17 Unknown Rx [Bactrim DS TAB] CLOTRIMAZOLE 1% Vag Cream [Mycelex 1 applic VG QHS 7 Days #45 gram 08/07/19 Unknown Rx Vag cream] Ketorolac [Toradol] 10 mg PO Q6H PRN #14 06/21/21 Unknown Rx Allergies Allergy/AdvReac Type Severity Reaction Status Date / Time No Known Allergies Allergy Unverified 06/29/17 12:49 ED Review of Systems Comment: All other systems reviewed and negative ED Past Medical Hx - Past Medical History Hx Hypertension: No Hx Congestive Heart Failure: No Hx Diabetes: No Hx Deep Vein Thrombosis: No Hx Renal Disease: No Hx Sickle Cell Disease: No Hx Seizures: No Hx Asthma: No Hx COPD: No Hx HIV: No Additional medical history: ECTOPIC - Surgical History Additional Surgical History: D&C after a miscarriage - Social History Smoking Status: Never Smoker - Medications Home Medications: Home Medications Medication Instructions Recorded Confirmed Last Taken Type metroNIDAZOLE [Flagyl TAB] 500 mg PO Q12HR #14 tab 07/03/17 02/12/20 Unknown Rx Benzonatate 200 mg PO TID PRN #30 capsule 07/23/17 02/12/20 Unknown Rx Cetirizine HCl [Zyrtec 10mg tab] 10 mg PO DAILY #30 tablet 07/23/17 02/12/20 Unknown Rx Fluticasone [Flonase] 1 spray NS QDAY #1 bottle 07/23/17 02/12/20 Unknown Rx Sulfamethoxazole/Trimethoprim 1 each PO BID 3 Days #6 tablet 07/23/17 02/12/20 Unknown Rx [Bactrim DS TAB] CLOTRIMAZOLE 1% Vag Cream [Mycelex 1 applic VG QHS 7 Days #45 gram 08/07/19 02/12/20 Unknown Rx Vag cream] Ketorolac [Toradol] 10 mg PO Q6H PRN #14 06/21/21 Unknown Rx ED Physical Exam - General Limitations: No Limitations General appearance: alert, in no apparent distress - Head Head exam: Present: atraumatic, normocephalic - Eye Eye exam: Present: normal appearance, PERRL, EOMI Pupils: Present: normal accommodation - ENT ENT exam: Present: normal exam, normal orophraynx, mucous membranes moist, TM's normal bilaterally - Neck Neck exam: Present: normal inspection, full ROM - Respiratory Respiratory exam: Present: normal lung sounds bilaterally. Absent: respiratory distress, wheezes, rales, rhonchi, chest wall tenderness, accessory muscle use, decreased breath sounds - Cardiovascular Cardiovascular Exam: Present: regular rate, normal rhythm. Absent: systolic murmur, diastolic murmur, rubs, gallop - GI/Abdominal GI/Abdominal exam: Present: soft, normal bowel sounds - Extremities Exam Extremities exam: Present: normal inspection - Back Exam Back exam: Present: normal inspection - Neurological Exam Neurological exam: Present: alert, oriented X3 - Psychiatric Psychiatric exam: Present: normal affect, normal mood - Skin Skin exam: Present: warm, dry, intact, normal color. Absent: rash ED Medical Decision Making - Lab Data Result diagrams: 06/20/21 21:38 06/20/21 21:38 - Radiology Data Radiology results: report reviewed [facility] [address] [place] [address] Ultrasound Report Signed Patient: AMA RINCON MR#: [id number] : 1995 Acct:[id number] Age/Sex: 26 / F ADM Date: 06/20/21 Loc: ED Attending Dr: Ordering Physician: KHADIJAH MONTEMAYOR MD Date of Service: 06/21/21 Procedure(s): US transvaginal Accession Number(s): [id number] cc: ED MD SIM ULTRASOUND PELVIS INDICATION / CLINICAL INFORMATION: pelvic pain and IUD. TECHNIQUE: Transabdominal and Transvaginal. Duplex Color Doppler used: Yes. COMPARISON: None available FINDINGS: UTERUS: Uterus measures 8.5 x 3.4 x 6.3 cm. IUD is present within the lower uterine segment. Within the uterine cervix, there are small hyperechoic foci compatible with complex nabothian cysts RIGHT ADNEXA: Right ovary measures 3.0 x 1.4 x 2.0 cm Normal color Doppler blood flow. LEFT ADNEXA: Left ovary measures 2.2 x 1.0 x 1.4 cm. Normal color Doppler blood flow. URINARY BLADDER: Not distended. FREE FLUID: None. ADDITIONAL FINDINGS: None. IMPRESSION: 1. IUD within the lower uterine segment is low lying. Signer Name: Naomi Lacy II, MD Signed: 06/21/2021 6:00 AM Workstation Name: [id number] Transcribed By: DONY Dictated By: NAOMI LACY II, MD Electronically Authenticated By: NAOMI LACY II, MD Signed Date/Time: 06/21/21 06 DD/ 7 TD/TT: - Medical Decision Making This patient presents with abdominal pain of unclear etiology. Their evaluation has not identified a emergent etiology for the abdominal pain. Specifically, given the very benign exam, normal laboratory studies, and lack of significant risk factors, I have a very low suspicion for appendicitis, ischemic bowel, bowel perforation, or any other life threatening disease. I have discussed with the patient the level of uncertainty with undifferentiated abdominal pain and clearly explained the need to follow-up as noted on the discharge instructions, or return to the Emergency Department immediately if the pain worsens, develops fever, persistent and uncontrollable vomiting, or for any new symptoms or concerns. I discussed with the patient that this presentation today for abdominal pain could represent a significant risk for an acute abdominal process. Although the tests in the ED were essentially normal, there is still a possibility of a process such as appendicitis, diverticulitis, cholecystitis, ulcer, early bowel obstruction, mesenteric ischemia, kidney stone, or even kidney infection which could subsequently cause disability or . The patient understands that they must return within 24 hours for a recheck or see their physician within 24 hours for re-exam due to the possibility of significant surgical or medical process. ID was found to be in lower segment/low-lying however the hCG support no x2. IUD was placed [facility] she was advised to follow-up with [facility] for evaluation of her IUD and which point time they can discuss whether it is appropriate for repeat placing ED Disposition Clinical Impression: Dysmenorrhea, IUD complication Disposition: 01 HOME / SELF CARE / HOMELESS Is pt being admited?: No Does the pt Need Aspirin: No Condition: Stable Instructions: Intrauterine Device Insertion, Intrauterine Device Information, Dysmenorrhea, Abdominal Pain (ED) Additional Instructions: What damage can malpositioning cause? For many women, a malpositioned IUD may have minimal or no adverse consequences. The most common negative sequelae of women with a malpositioned IUD, however, include an increase in bleeding or pain, compared with women with fundally positioned IUDs. Luis and colleagues retrospectively reviewed the medical records of 167 consecutive women who had ultrasound examination with an IUD in place and found that 28 (16.8%) of them had malpositioned devices.2 Of these 28 women, 75% presented with either bleeding or pain, compared with 34.5% of women with normally positioned devices (P=.[phone]). Twenty of the 21 patients with a malpositioned device and symptoms reported improvement in their symptoms after IUD removal. In this study, the type of IUD was not specified. Similar to Luis and colleagues, authors of a case-controlled study, in which women with malpositioned IUDs were compared with women with normally positioned IUDs, found a higher proportion of symptoms, including bleeding and pain, among women with malpositioned IUDs.3 This study included both copper and levonorgestrel IUDs. Prescriptions: Ketorolac [Toradol] 10 mg PO Q6H PRN #14 PRN Reason: Pain Referrals: ANNMARIE RAMSAY MD [Primary Care Provider] - 3-5 Days [facility] [Provider Group] - 3-5 Days (Patient follow-up with [facility] for further evaluation of the IUD as it is most likely related to the cause of your dysmenorrhea) <MARÍA GALLEGOS - Last Filed: 06/21/21 07:13> ED Review of Systems ROS: Stated complaint: VAGINAL/ABD PAIN/IUD Other details as noted in HPI ED Course Vital Signs 06/20/21 06/21/21 21:15 03:22 Temperature 99.0 F Pulse Rate 106 H Respiratory 16 16 Rate Blood Pressure 125/76 O2 Sat by Pulse 98 Oximetry ED Medical Decision Making - Lab Data Result diagrams: 06/20/21 21:38 06/20/21 21:38 Critical care attestation.: If time is entered above; I have spent that time in minutes in the direct care of this critically ill patient, excluding procedure time. ED Disposition Is pt being admited?: No Does the pt Need Aspirin: No
[2021-06-21] MEDS ORDERED: KETOROLAC 60 MG/2 ML INJ IM STA (03:10)
--- NOTE | 2021-06-21 06:04 | Ultrasound Report ---
ULTRASOUND PELVIS INDICATION / CLINICAL INFORMATION: pelvic pain and IUD. TECHNIQUE: Transabdominal and Transvaginal. Duplex Color Doppler used: Yes. COMPARISON: None available FINDINGS: UTERUS: Uterus measures 8.5 x 3.4 x 6.3 cm. IUD is present within the lower uterine segment. Within t he uterine cervix, there are small hyperechoic foci compatible with complex nabothian cysts RIGHT ADNEXA: Right ovary measures 3.0 x 1.4 x 2.0 cm Normal color Doppler blood flow. LEFT ADNEXA: Left ovary measures 2.2 x 1.0 x 1.4 cm. Normal color Doppler blood flow. URINARY BLADDER: Not distended. FREE FLUID: None. ADDITIONAL FINDINGS: None. IMPRESSION: 1. IUD within the lower uterine segment is low lying. Signer Name: Miguel Rod II, MD Signed: 06/21/2021 6:00 AM Workstation Name: [id number]
== END 2021-06-21 06:35 | disposition home or self-care (01) ==
LOC: ED 21:08
DX: N94.6 Dysmenorrhea, unspecified (principal); T83.39XA Other mechanical complication of intrauterine contraceptive device, initial encounter
CPT/HCPCS: 36415; 76830; 76856; 80053; 81001; 81025; 84702; 85025; 96372; 99284; J1885